=== PATIENT | female | born 1945 | race Caucasian/White ===

== ENCOUNTER 2018-07-15 11:44 | Observation (INO) | payer MEDICARE, OTHER ==
[~2018-07-15] VITALS: Ht 162.6 cm; Wt 99.8 kg
[~2018-07-15 11:44] MED LIST: ALBU90OI INH; ALIS150T PO; ALLO100 PO; ASPI81CH PO; ASPI81EC PO; BUME2 PO; CIPR500 PO; CYCL10 PO; FURO40 PO; HYDACE10B PO; HYDACE5 PO; HYOS0.375T PO; LEVSOD75 PO; LISI20 PO; METO25 PO; METR500 PO; Mucinex600 MG PO; NITR.6SL SL; POTCHL20ER PO; PRAV20 PO; Prednisone20 MG PO; QUIN10 PO; RANO500T PO; ROPI.25 PO; SPIR25 PO; TRAM50 PO; VERA180ERB PO; WARF5 PO; Zithromax250 MG PO
[2018-07-15 12:16] LABS: BASOPHILS ABSOLUTE AUTO 0.05 K/mm3 (0.00-0.23); BASOPHILS PERCENT AUTO 0 % (0-2); EOSINOPHILS ABSOLUTE AUTO 0.51 K/mm3 (0.00-0.68); EOSINOPHILS PERCENT AUTO 3 % (0-6); Hematocrit 33.2 % (33.0-51.0); Hemoglobin 9.8 g/dL (11.5-16.0); IMMATURE GRAN ABSOLUTE AUTO 0.08 K/mm3 (0.00-0.10); IMMATURE GRAN PERCENT AUTO 1 % (0-1); LYMPHOCYTES ABSOLUTE AUTO 1.12 K/mm3 (0.84-5.20); LYMPHOCYTES PERCENT AUTO 7 % (21-46); MONOCYTES ABSOLUTE AUTO 1.18 K/mm3 (0.16-1.47); MONOCYTES PERCENT AUTO 8 % (4-13); Mean Corpuscular HGB 23.6 pg (26.0-34.0); Mean Corpuscular HGB Conc 29.5 g/dL (31.5-36.5); Mean Corpuscular Volume 80 fL (80-100); Mean Platelet Volume 9.2 fL (9.1-12.4); NEUTROPHILS ABSOLUTE AUTO 12.67 K/mm3 (1.96-9.15); NEUTROPHILS PERCENT AUTO 81 % (41-73); NRBC ABSOLUTE 0.06 K/mm3 (0.00-0.02); NRBC Auto 0.4 /100 WBC (0.0-0.2); Platelet Count 378 K/mm3 (150-400); RDW Coefficient Variation 19.8 % (11.7-14.2); RDW Standard Deviation 55.1 fL (35.1-46.3); Red Blood Cell Count 4.15 M/mm3 (3.80-5.20); White Blood Cell Count 15.61 K/mm3 (4.00-11.30)
[2018-07-15 12:45] LABS: Albumin, Blood 2.6 g/dL (3.4-5.0); Albumin/Globulin Ratio 0.6 (0.8-1.8); Bilirubin, Total 0.6 mg/dL (0.1-1.0); Bun/Creatinine Ratio 24.3 (12.0-20.0); Calcium, Blood 10.6 mg/dL (8.5-10.1); Creatinine, Blood 1.73 mg/dL (0.40-1.00); Globulin, Blood 4.1 g/dL (2.2-4.0); Total Protein, Blood 6.7 g/dL (6.4-8.2)
[2018-07-15 12:50] LABS: Potassium, Blood 2.4 mmol/L (3.5-5.5)
[2018-07-15 13:57] LABS: Source, Urine Catheter
[2018-07-15 14:08] LABS: Prothrombin Time Results 53.6 Sec (9.7-11.5)
[2018-07-15 14:22] LABS: International Normalized Ratio 5.95
[2018-07-15 14:28] LABS: Appearance, Urine Clear (Clear); Bilirubin, Urine Neg (Neg); Blood, Urine Neg (Neg); Color, Urine Yellow (P-Yellow); Glucose Qualitative, Urine Neg (Neg); Ketones, Urine Neg (Neg); Leukocyte Esterase, Urine 1+ (Neg); Nitrite, Urine Neg (Neg); Protein, Urine 1+ (Neg); Urobilinogen, Urine NORM (Normal)
[2018-07-15 14:30] LABS: Influenza A Negative (NEGATIVE); Influenza B Negative (NEGATIVE)
[2018-07-15 14:55] LABS: Bacteria Rare /hpf; Red Blood Cells, Urine 0-2 /hpf (0-2); Squamous Epithelial Cells Rare /hpf (Few); White Blood Cells, Urine 0-2 /hpf (0-5)
--- NOTE | 2018-07-15 18:45 | NUR ---
ADMISSION COMPLETE. PATIENT HAVING WHAT APPEAR TO BE TREMORS, PATIENT STATES THAT IS NOT NORMAL FOR HER. ADMISSION COMPLETED. CALL LIGHT IN REACH. MEDICATION LIST NOT RECONCILED
--- NOTE | 2018-07-16 05:17 | NUR ---
SHIFT SUMMARY PT HAS SLEPT WELL THIS SHIFT. PT HAS ONGOING DISCOMFORT IN R HIP AND LEG. PT HAS BEEN REPOSITIONED AND K-PAD PLACED WITH GOOD EFFECT. PT HAS BEEN TX PER EMAR WELL. PT IS STILL VERY SHAKY AND FEELS WEAK. PT IS CURRENTLY WATCHING TV AND IN NO DISTRESS. CALL LIGHT IN REACH.
[2018-07-16 05:52] LABS: BASOPHILS ABSOLUTE AUTO 0.04 K/mm3 (0.00-0.23); BASOPHILS PERCENT AUTO 0 % (0-2); EOSINOPHILS ABSOLUTE AUTO 0.39 K/mm3 (0.00-0.68); EOSINOPHILS PERCENT AUTO 3 % (0-6); Hematocrit 28.2 % (33.0-51.0); Hemoglobin 8.1 g/dL (11.5-16.0); IMMATURE GRAN ABSOLUTE AUTO 0.11 K/mm3 (0.00-0.10); IMMATURE GRAN PERCENT AUTO 1 % (0-1); LYMPHOCYTES ABSOLUTE AUTO 1.77 K/mm3 (0.84-5.20); LYMPHOCYTES PERCENT AUTO 15 % (21-46); MONOCYTES ABSOLUTE AUTO 1.03 K/mm3 (0.16-1.47); MONOCYTES PERCENT AUTO 9 % (4-13); Mean Corpuscular HGB 23.5 pg (26.0-34.0); Mean Corpuscular HGB Conc 28.7 g/dL (31.5-36.5); Mean Corpuscular Volume 82 fL (80-100); Mean Platelet Volume 9.6 fL (9.1-12.4); NEUTROPHILS ABSOLUTE AUTO 8.13 K/mm3 (1.96-9.15); NEUTROPHILS PERCENT AUTO 71 % (41-73); NRBC ABSOLUTE 0.06 K/mm3 (0.00-0.02); NRBC Auto 0.5 /100 WBC (0.0-0.2); Platelet Count 319 K/mm3 (150-400); RDW Coefficient Variation 19.9 % (11.7-14.2); RDW Standard Deviation 57.5 fL (35.1-46.3); Red Blood Cell Count 3.45 M/mm3 (3.80-5.20); White Blood Cell Count 11.47 K/mm3 (4.00-11.30)
[2018-07-16 06:18] LABS: Bun/Creatinine Ratio 21.2 (12.0-20.0); Calcium, Blood 9.2 mg/dL (8.5-10.1); Creatinine, Blood 1.51 mg/dL (0.40-1.00); Potassium, Blood 3.2 mmol/L (3.5-5.5)
--- NOTE | 2018-07-16 06:33 | NUR ---
CRITICAL LAB CALLED INR 4.55.
[2018-07-16 06:34] LABS: International Normalized Ratio 4.55
--- NOTE | 2018-07-16 06:41 | NUR ---
PHARMACY CALLED ABOUT INR 4.55. PHARMACIST MARTHA STATED IT IS TRENDING IN THE RIGHT DIRECTION.
[2018-07-16 14:29] LABS: Hematocrit 27.3 % (33.0-51.0); Hemoglobin 8.1 g/dL (11.5-16.0)
--- NOTE | 2018-07-17 04:09 | NUR ---
07/17/18 0400 ASSISTED UP TO [facility] FOR VOIDING. C/O RT LEG AND BACK DISCOMFORT. MEDICATED PER AUG. VITALS STABLE. TAKING ORAL INTAKE WELL. PT WAS GIVEN A SLEEPER EARLIER PER HER C/O NOT ABLE TO SLEEP. SHE STATES IT HELPED "SOME" TO SLEEP.
[2018-07-17 05:00] LABS: BASOPHILS ABSOLUTE AUTO 0.04 K/mm3 (0.00-0.23); BASOPHILS PERCENT AUTO 0 % (0-2); EOSINOPHILS ABSOLUTE AUTO 0.49 K/mm3 (0.00-0.68); EOSINOPHILS PERCENT AUTO 5 % (0-6); Hematocrit 29.5 % (33.0-51.0); Hemoglobin 8.6 g/dL (11.5-16.0); IMMATURE GRAN PERCENT AUTO 1 % (0-1); LYMPHOCYTES ABSOLUTE AUTO 1.77 K/mm3 (0.84-5.20); LYMPHOCYTES PERCENT AUTO 19 % (21-46); MONOCYTES ABSOLUTE AUTO 0.91 K/mm3 (0.16-1.47); MONOCYTES PERCENT AUTO 10 % (4-13); Mean Corpuscular HGB 23.8 pg (26.0-34.0); Mean Corpuscular HGB Conc 29.2 g/dL (31.5-36.5); Mean Corpuscular Volume 82 fL (80-100); Mean Platelet Volume 9.5 fL (9.1-12.4); NEUTROPHILS PERCENT AUTO 65 % (41-73); NRBC ABSOLUTE 0.04 K/mm3 (0.00-0.02); NRBC Auto 0.4 /100 WBC (0.0-0.2); Platelet Count 327 K/mm3 (150-400); RDW Standard Deviation 58.1 fL (35.1-46.3); Red Blood Cell Count 3.62 M/mm3 (3.80-5.20); White Blood Cell Count 9.51 K/mm3 (4.00-11.30)
[2018-07-17 05:42] LABS: Calcium, Blood 10.5 mg/dL (8.5-10.1); Creatinine, Blood 1.21 mg/dL (0.40-1.00); Potassium, Blood 3.4 mmol/L (3.5-5.5)
[2018-07-17] MEDS ORDERED: PROP160ER PO (12:53)
[2018-07-17] MEDS ORDERED: GABA100 PO (12:53)
[2018-07-17] MEDS ORDERED: BUME2 PO (12:54)
[2018-07-17] MEDS ORDERED: TRAM50 PO (12:55)
[2018-07-17] MEDS ORDERED: WARF1 PO (12:56)
[2018-07-17] MEDS ORDERED: METO2.5 PO (12:57)
[2018-07-18 05:24] LABS: Bun/Creatinine Ratio 16.5 (12.0-20.0); Calcium, Blood 10.1 mg/dL (8.5-10.1); Creatinine, Blood 1.21 mg/dL (0.40-1.00); Potassium, Blood 4.1 mmol/L (3.5-5.5)
[2018-07-18 05:38] LABS: Hematocrit 31.8 % (33.0-51.0); Hemoglobin 9.2 g/dL (11.5-16.0)
--- NOTE | 2018-07-18 07:17 | NUR ---
Rn summary: Patient is alert and oriented. Pt has not slept much tonight per her report. Pt has been medicated for pain x2 this shift with some relief. She states she hurts all over from fall. Pt has significant bruising to rt side and left back. Pt is up to BSC independantly. Pt on O2 at 2 liters. Plan is for pt to be discharged today. Call light in reach. Stable during the night.
[2018-07-18] MEDS ORDERED: LEVSOD75 PO (11:07)
--- NOTE | 2018-07-18 11:54 | NUR ---
DISCHARGE INSTRUCTIONS REVIEWED WITH PT AND FRIENDS. IV DC'D INTACT. PT ESCORTED OUT VIA W/C AT 1140 TO D/C HOME WITH FRIENDS.
== END 2018-07-18 11:40 | disposition home or self-care (01) ==
LOC: ER 11:44 → MEDS 11:45
PROVIDERS: Emergency Medicine; ADMIT Hospitalist
DX: G92 Toxic encephalopathy (principal); T50.7X5A Adverse effect of analeptics and opioid receptor antagonists, initial encounter; E87.6 Hypokalemia; N17.9 Acute kidney failure, unspecified; I13.0 Hypertensive heart and chronic kidney disease with heart failure and stage 1 through stage 4 chronic kidney disease, or unspecified chronic kidney disease; I50.9 Heart failure, unspecified; N18.9 Chronic kidney disease, unspecified; J44.9 Chronic obstructive pulmonary disease, unspecified; F17.210 Nicotine dependence, cigarettes, uncomplicated; D72.829 Elevated white blood cell count, unspecified; E03.9 Hypothyroidism, unspecified; R79.1 Abnormal coagulation profile; Z79.01 Long term (current) use of anticoagulants; Z79.899 Other long term (current) drug therapy
CPT/HCPCS: 36415; 51701; 71046; 72100; 80048; 80053; 81001; 82330; 83735; 84145; 84484; 85014; 85018; 85025; 85610; 87086; 87804; 93005; 93010; 94640; 96361; 96365-59; 96366; 96366-59; 96367; 96375-59; 96376; 97116; 97162; 97530; 99285-25; G0378; J0696; J2405; J3480; J7030; J7050

== ENCOUNTER → 2018-07-27 | Outpatient (CLI) | payer MEDICARE, OTHER ==
[~2018-07-27] MED LIST changes: +GABA100 PO; +METO2.5 PO; +PROP160ER PO; +WARF1 PO
[2018-07-27 17:45] LABS: Bun/Creatinine Ratio 17.7 (12.0-20.0); Calcium, Blood 8.7 mg/dL (8.5-10.1); Creatinine, Blood 1.41 mg/dL (0.40-1.00); Potassium, Blood 3.4 mmol/L (3.5-5.5)
[2018-07-27 17:51] LABS: International Normalized Ratio 1.15
== END | disposition home or self-care (01) ==
LOC: LAB HH 12:20
PROVIDERS: Internal Medicine Hematology & Oncology
DX: Z79.01 Long term (current) use of anticoagulants (principal); Z51.81 Encounter for therapeutic drug level monitoring; I48.0 Paroxysmal atrial fibrillation
CPT/HCPCS: 80048; 85610

== ENCOUNTER 2019-11-19 15:53 | Emergency (ER) | payer MEDICARE, OTHER ==
[~2019-11-19] VITALS: Ht 162.6 cm; Wt 93.4 kg
[~2019-11-19 15:53] MED LIST changes: -GABA100 PO; -POTCHL20ER PO; -PROP160ER PO; -RANO500T PO; -ROPI.25 PO; -WARF1 PO
[2019-11-19 17:03] LABS: BASOPHILS ABSOLUTE AUTO 0.02 K/mm3 (0.00-0.23); BASOPHILS PERCENT AUTO 0 % (0-2); EOSINOPHILS ABSOLUTE AUTO 0.16 K/mm3 (0.00-0.68); EOSINOPHILS PERCENT AUTO 2 % (0-6); Hematocrit 45.1 % (33.0-51.0); Hemoglobin 13.7 g/dL (11.5-16.0); IMMATURE GRAN ABSOLUTE AUTO 0.07 K/mm3 (0.00-0.10); IMMATURE GRAN PERCENT AUTO 1 % (0-1); LYMPHOCYTES ABSOLUTE AUTO 1.13 K/mm3 (0.84-5.20); LYMPHOCYTES PERCENT AUTO 16 % (21-46); MONOCYTES PERCENT AUTO 11 % (4-13); Mean Corpuscular HGB 27.7 pg (26.0-34.0); Mean Corpuscular HGB Conc 30.4 g/dL (31.5-36.5); Mean Corpuscular Volume 91 fL (80-100); NEUTROPHILS ABSOLUTE AUTO 5.02 K/mm3 (1.96-9.15); NEUTROPHILS PERCENT AUTO 70 % (41-73); RDW Coefficient Variation 15.8 % (11.7-14.2); RDW Standard Deviation 51.8 fL (35.1-46.3); Red Blood Cell Count 4.94 M/mm3 (3.80-5.20)
[2019-11-19 17:19] LABS: Alanine Aminotransfer (ALT/SGP 12 U/L (12-78); Albumin, Blood 2.4 g/dL (3.4-5.0); Albumin/Globulin Ratio 0.6 (0.8-1.8); Alk Phos 76 U/L (50-136); Anion Gap 6 mmol/L (6-16); Aspartate Aminotrans (AST/SGOT 16 U/L (12-37); Bilirubin, Total 0.7 mg/dL (0.1-1.0); Blood Urea Nitrogen 14 mg/dL (8-24); Bun/Creatinine Ratio 13.1 (12.0-20.0); CO2, Blood 29 mmol/L (21-32); Calcium, Blood 9.2 mg/dL (8.5-10.1); Chloride, Blood 104 mmol/L (98-108); Creatinine, Blood 1.07 mg/dL (0.40-1.00); Globulin, Blood 4.3 g/dL (2.2-4.0); Glomerular Filtration Rate 53 (60-); Glucose, Blood 103 mg/dL (70-99); Potassium, Blood 3.5 mmol/L (3.5-5.5); Sodium, Blood 139 mmol/L (136-145); Total Protein, Blood 6.7 g/dL (6.4-8.2); Troponin I <0.015 ng/mL (0.000-0.040)
[2019-11-19 17:37] LABS: Mean Platelet Volume 10.5 fL (9.1-12.4); Platelet Count 212 K/mm3 (150-400)
[2019-11-19] MEDS ORDERED: ALLO100 PO (19:00)
[2019-11-19] MEDS ORDERED: GABA100 PO (19:00)
[2019-11-19] MEDS ORDERED: VERA180ERB PO (19:01)
[2019-11-19] MEDS ORDERED: POTCHL20ER PO (19:03)
[2019-11-19] MEDS ORDERED: ROPINIROLE HCL0.5 MG PO (19:05)
[2019-11-19] MEDS ORDERED: BUME2 PO (19:06)
[2019-11-19] MEDS ORDERED: RANO500T PO (19:07)
[2019-11-19] MEDS ORDERED: COMBIVENT RESPIM4 G1 INH (19:07)
[2019-11-19] MEDS ORDERED: FLOVENT HFA12 GM INH (19:07)
[2019-11-19] MEDS ORDERED: HYDROCODONE-AC1 EAC7 PO (19:08)
[2019-11-19] MEDS ORDERED: TRAM50 PO (19:09)
[2019-11-19] MEDS ORDERED: PROP120ER PO (19:09)
[2019-11-19] MEDS ORDERED: WARF1 (19:10)
[2019-11-19] MEDS ORDERED: AMOCLA875 PO (19:29)
[2019-11-19] MEDS ORDERED: Prednisone50 MG PO (19:29)
[2019-11-19] MEDS ORDERED: ALBU90OI INH (19:29)
== END 2019-11-19 19:35 | disposition home or self-care (01) ==
LOC: ER 15:53
PROVIDERS: Emergency Medicine
DX: J18.9 Pneumonia, unspecified organism (principal); J44.9 Chronic obstructive pulmonary disease, unspecified; Z79.01 Long term (current) use of anticoagulants; Z79.899 Other long term (current) drug therapy; I11.0 Hypertensive heart disease with heart failure; I50.9 Heart failure, unspecified; F17.210 Nicotine dependence, cigarettes, uncomplicated
CPT/HCPCS: 36415; 71046; 80053; 83880; 84484; 85025; 93005; 93010; 94640; 99285-25; J7512

== ENCOUNTER 2019-11-28 09:00 | Inpatient (IN) | payer MEDICARE, OTHER ==
[~2019-11-28] VITALS: Ht 162.6 cm; Wt 90.7 kg
[~2019-11-28 09:00] MED LIST changes: +AMOCLA875 PO; +Prednisone50 MG PO
[2019-11-28 09:52] LABS: BASOPHILS ABSOLUTE AUTO 0.08 K/mm3 (0.00-0.23); BASOPHILS PERCENT AUTO 1 % (0-2); EOSINOPHILS ABSOLUTE AUTO 0.14 K/mm3 (0.00-0.68); EOSINOPHILS PERCENT AUTO 1 % (0-6); Hematocrit 44.8 % (33.0-51.0); IMMATURE GRAN ABSOLUTE AUTO 0.27 K/mm3 (0.00-0.10); IMMATURE GRAN PERCENT AUTO 3 % (0-1); LYMPHOCYTES ABSOLUTE AUTO 1.85 K/mm3 (0.84-5.20); LYMPHOCYTES PERCENT AUTO 19 % (21-46); MONOCYTES ABSOLUTE AUTO 0.98 K/mm3 (0.16-1.47); MONOCYTES PERCENT AUTO 10 % (4-13); Mean Corpuscular HGB 28.6 pg (26.0-34.0); Mean Corpuscular HGB Conc 31.3 g/dL (31.5-36.5); Mean Corpuscular Volume 91 fL (80-100); Mean Platelet Volume 9.7 fL (9.1-12.4); NEUTROPHILS ABSOLUTE AUTO 6.57 K/mm3 (1.96-9.15); NEUTROPHILS PERCENT AUTO 67 % (41-73); Platelet Count 334 K/mm3 (150-400); RDW Coefficient Variation 15.6 % (11.7-14.2); White Blood Cell Count 9.89 K/mm3 (4.00-11.30)
[2019-11-28 10:03] LABS: Alanine Aminotransfer (ALT/SGP 11 U/L (12-78); Albumin, Blood 2.4 g/dL (3.4-5.0); Albumin/Globulin Ratio 0.5 (0.8-1.8); Alk Phos 82 U/L (50-136); Anion Gap 3 mmol/L (6-16); Aspartate Aminotrans (AST/SGOT 14 U/L (12-37); Bilirubin, Total 0.6 mg/dL (0.1-1.0); Blood Urea Nitrogen 34 mg/dL (8-24); Bun/Creatinine Ratio 27.6 (12.0-20.0); CO2, Blood 29 mmol/L (21-32); Calcium, Blood 9.5 mg/dL (8.5-10.1); Chloride, Blood 105 mmol/L (98-108); Creatinine, Blood 1.23 mg/dL (0.40-1.00); Globulin, Blood 4.7 g/dL (2.2-4.0); Glomerular Filtration Rate 45 (60-); Glucose, Blood 112 mg/dL (70-99); Potassium, Blood 4.1 mmol/L (3.5-5.5); Sodium, Blood 137 mmol/L (136-145); Total Protein, Blood 7.1 g/dL (6.4-8.2); Troponin I <0.015 ng/mL (0.000-0.040)
[2019-11-28] MEDS ORDERED: Ventolin/Prove6.7 GM INH (13:26)
[2019-11-28] MEDS ORDERED: GABA100 PO (13:27)
[2019-11-28] MEDS ORDERED: ALLO100 PO (13:27)
[2019-11-28] MEDS ORDERED: VERA180ERB PO (13:28)
[2019-11-28] MEDS ORDERED: POTCHL20ER PO (13:28)
[2019-11-28] MEDS ORDERED: ROPINIROLE HCL0.5 MG PO (13:29)
[2019-11-28] MEDS ORDERED: BUME2 PO (13:30)
[2019-11-28] MEDS ORDERED: FLOVENT HFA12 GM INH (13:31)
[2019-11-28] MEDS ORDERED: RANO500T PO (13:32)
[2019-11-28] MEDS ORDERED: PROP120ER PO (13:33)
[2019-11-28] MEDS ORDERED: HYDROCODONE-AC1 EAC7 PO (13:33)
[2019-11-28] MEDS ORDERED: COMBIVENT RESPIM4 G1 INH (13:33)
[2019-11-28] MEDS ORDERED: TRAM50 PO (13:33)
[2019-11-28] MEDS ORDERED: Coumadin2 MG PO (13:34)
[2019-11-28] MEDS ORDERED: FISH OIL 1,001000 M1 PO (14:02)
[2019-11-28] MEDS ORDERED: Colace100 MG PO (14:03)
[2019-11-28] MEDS ORDERED: Vitamin D2000 UNIT PO (14:03)
[2019-11-28 14:45] LABS: International Normalized Ratio 2.63; Prothrombin Time Results 26.6 Sec (9.7-11.5)
--- NOTE | 2019-11-28 17:14 | NUR ---
ER ADMIT- PT ARRIVED TO ROOM 363 VIA [place]NEY FROM ED AT 1538. PT SBA INTO BED. PT DENIES ANY PAIN. PT REPORTS CHRONIC NEUROPAHY TO BLE. LS DIMINISHED IN THE BASES, WITH CRACKLES ON THE RIGHT, ON 2L N/C. PT TALKS IN SHORT SENTENCES DUE TO SHORTNESS OF BREATH, RASPY VOICE NOTED. PT REPORTS SHE WAS DIAGNOSED WITH PNEUMONIA A WEEK AGO AND CONTINUE TO WORSEN. COVID SWAB SENT AND CAME BACK NEGATIVE, RESP PANEL ALSO SENT. PT REPORTS SHE IS ONLY SMOKING APROX 3 CIGARETTES A DAY NOW. PT ALSO STATES SHE HAS BEEN ASPIRATING ON WATER SINCE HER PNEUMONIA DIAGNOSIS. PT DENIES COUGH. TELE SB AT 57. 1+ BLE EDEMA. PT ORIENTED TO ROOM AND CALL SYSTEM, CALL LIGHT IN REACH.
[2019-11-28 17:17] LABS: Adenovirus Not Detected (NOT DETECT); Bordetella pertussis Not Detected (NOT DETECT); Chlamydophila pneumoniae Not Detected (NOT DETECT); Coronavirus 229E Not Detected (NOT DETECT); Coronavirus HKU1 Not Detected (NOT DETECT); Coronavirus NL63 Not Detected (NOT DETECT); Coronavirus OC43 Not Detected (NOT DETECT); Human Metapneumovirus Not Detected (NOT DETECT); Human Rhinovirus/Enterovirus Not Detected (NOT DETECT); Influenza A/2009-H1 Not Detected (NOT DETECT); Influenza A/H1 Not Detected (NOT DETECT); Influenza A/H3 Not Detected (NOT DETECT); Influenza B Not Detected (NOT DETECT); Mycoplasma pneumoniae Not Detected (NOT DETECT); Parainfluenza Virus 1 Not Detected (NOT DETECT); Parainfluenza Virus 2 Not Detected (NOT DETECT); Parainfluenza Virus 3 Not Detected (NOT DETECT); Parainfluenza Virus 4 Not Detected (NOT DETECT); Respiratory Syncytial Virus Not Detected (NOT DETECT)
[2019-11-29 05:31] LABS: BASOPHILS ABSOLUTE AUTO 0.05 K/mm3 (0.00-0.23); BASOPHILS PERCENT AUTO 1 % (0-2); EOSINOPHILS ABSOLUTE AUTO 0.12 K/mm3 (0.00-0.68); EOSINOPHILS PERCENT AUTO 1 % (0-6); Hematocrit 42.3 % (33.0-51.0); Hemoglobin 13.1 g/dL (11.5-16.0); IMMATURE GRAN PERCENT AUTO 2 % (0-1); LYMPHOCYTES ABSOLUTE AUTO 1.49 K/mm3 (0.84-5.20); LYMPHOCYTES PERCENT AUTO 16 % (21-46); MONOCYTES ABSOLUTE AUTO 0.86 K/mm3 (0.16-1.47); MONOCYTES PERCENT AUTO 9 % (4-13); Mean Corpuscular HGB 28.1 pg (26.0-34.0); Mean Corpuscular Volume 91 fL (80-100); Mean Platelet Volume 10.1 fL (9.1-12.4); NEUTROPHILS ABSOLUTE AUTO 6.78 K/mm3 (1.96-9.15); NEUTROPHILS PERCENT AUTO 71 % (41-73); Platelet Count 298 K/mm3 (150-400); RDW Coefficient Variation 15.5 % (11.7-14.2); RDW Standard Deviation 51.2 fL (35.1-46.3); Red Blood Cell Count 4.67 M/mm3 (3.80-5.20)
[2019-11-29 05:44] LABS: International Normalized Ratio 1.39; Prothrombin Time Results 14.6 Sec (9.7-11.5)
[2019-11-29 05:55] LABS: Albumin, Blood 2.1 g/dL (3.4-5.0); Albumin/Globulin Ratio 0.5 (0.8-1.8); Bilirubin, Total 0.7 mg/dL (0.1-1.0); Calcium, Blood 8.7 mg/dL (8.5-10.1); Creatinine, Blood 1.24 mg/dL (0.40-1.00); Globulin, Blood 4.4 g/dL (2.2-4.0); Potassium, Blood 4.4 mmol/L (3.5-5.5); Total Protein, Blood 6.5 g/dL (6.4-8.2)
--- NOTE | 2019-11-29 06:37 | NUR ---
SHIFT SUMMARY PT HAS HAD NO ACUTE CHANGES THIS SHIFT, NO C/O OF ANY KIND, SLEPT T/O THS NIGHT, & AT THIS TIME, CALL LIGHT IN REACH, WILL CONT TO MONITOR UNTIL REPORT GIVEN TO DAY RN.
--- NOTE | 2019-11-29 10:16 | NUR ---
SPOKE TO DR PEREZ- PT POTASSIUM THIS AM WAS 4.4. PT HAS DIFFICULTY SWALLOWING THESE AND HAS 40MEQ ORDERED. ORDER RECIEVED TO DC POTASSIUM.
--- NOTE | 2019-11-29 19:57 | NUR ---
SHIFT SUMMARY- PT POST PROCEDURE VITALS HAVE REMAINED STABLE. PT RESP RATE REDUCED BACK TO WNL. PT RESTING COMFORTABLY NO S&S OF DISTRESS NOTED PT STILL ON 2L O2 VIA NC. DR PEREZ ORDERED IV ATIVAN PRN. WHEN PT IV ABX WERE STARTED HER IV INFILTRATED AND ACCESS WAS LOST FOR A WHILE. PT IS A DIFFICULT IV START REQUIRES HOT PACKING HER EXTREMITY. NEW IV ACCESS ESTABLISHED IV ABX INFUSION RESUMED AND THE PT RELAXED AND TOOK A NAP. SHE WAS NO LONGER SHOWING S&S OF ANXIETY. NOP MED GIVEN AT THIS TIME PRN AVAILABLE IF NEED SHOULD ARRISE. PASSED ON IN BEDSIDE REPORT TO NIGHT KARLY OWENS.
--- NOTE | 2019-11-30 04:49 | NUR ---
SHIFT SUMMARY: 74 Y/O FEMALE RESTED COMFORTABLY ALL SHIFT; DENIES PAIN OR NAUSEA; WEARING O2 AT 2L/M PER NASAL CANNULA; DENIES SOB; ALERT AND ORIENTED X 4; BED ALARM APPLIED, BED LOW POSITION WITH CALL LIGHT AT SIDE.
[2019-11-30 05:21] LABS: BASOPHILS ABSOLUTE AUTO 0.05 K/mm3 (0.00-0.23); BASOPHILS PERCENT AUTO 1 % (0-2); EOSINOPHILS ABSOLUTE AUTO 0.09 K/mm3 (0.00-0.68); EOSINOPHILS PERCENT AUTO 1 % (0-6); Hematocrit 42.7 % (33.0-51.0); Hemoglobin 13.3 g/dL (11.5-16.0); IMMATURE GRAN ABSOLUTE AUTO 0.17 K/mm3 (0.00-0.10); IMMATURE GRAN PERCENT AUTO 2 % (0-1); LYMPHOCYTES ABSOLUTE AUTO 1.45 K/mm3 (0.84-5.20); LYMPHOCYTES PERCENT AUTO 15 % (21-46); MONOCYTES ABSOLUTE AUTO 0.97 K/mm3 (0.16-1.47); MONOCYTES PERCENT AUTO 10 % (4-13); Mean Corpuscular HGB 27.9 pg (26.0-34.0); Mean Corpuscular HGB Conc 31.1 g/dL (31.5-36.5); Mean Corpuscular Volume 90 fL (80-100); Mean Platelet Volume 9.6 fL (9.1-12.4); NEUTROPHILS ABSOLUTE AUTO 6.95 K/mm3 (1.96-9.15); NEUTROPHILS PERCENT AUTO 72 % (41-73); Platelet Count 280 K/mm3 (150-400); RDW Coefficient Variation 15.3 % (11.7-14.2); RDW Standard Deviation 50.3 fL (35.1-46.3); Red Blood Cell Count 4.76 M/mm3 (3.80-5.20); White Blood Cell Count 9.68 K/mm3 (4.00-11.30)
[2019-11-30 05:44] LABS: Bun/Creatinine Ratio 16.8 (12.0-20.0); Calcium, Blood 8.7 mg/dL (8.5-10.1); Creatinine, Blood 1.43 mg/dL (0.40-1.00); Potassium, Blood 3.3 mmol/L (3.5-5.5)
--- NOTE | 2019-11-30 19:28 | NUR ---
SHIFT SUMMARY- PT HAS BEEN SLEEPY TODAY, ALL VITALS WNL. PT HAS DENIED THE NEED FOR PAIN MEDICATION. NO ACUTE CHANGE T/O THE SHIFT THORCENTESIS PLANNED FOR TOMORROW MORNING HELD ALL HEPARIN SINCE ORDER WAS RECIEVED. PASSED ON IN REPORT TO NIGHT RN.
--- NOTE | 2019-12-01 03:54 | NUR ---
SHIFT SUMMARY: 74 Y/O OBESE FEMALE RESTED COMFORTABLY ALL SHIFT; DENIES PAIN; PT HAD ONE EPISODE NAUSEA WITHOUT EMESIS WITH ZOFRAN 4MG IVP X 1 GIVEN WITH RELIEF FELT; PT WEARING O2 AT 2L/M PER NASAL CANNULA; PTS BLOOD THINNERS HELD LAST NIGHT FOR POSSIBLE SURGICAL INTERVENTION THIS AM; PTS LUNG SOUNDS ARE DIMINISHED THROUGHOUT WITH NO COUGH NOTED; ALERT AND ORIENTED X 4; PT TOOK ALL MEDS SCHEDULED VIA APPLESAUCE THIS SHIFT; BED ALARM APPLIED, BED LOW POSITION WITH CALL LIGHT AT SIDE.
[2019-12-01 05:20] LABS: BASOPHILS ABSOLUTE AUTO 0.05 K/mm3 (0.00-0.23); BASOPHILS PERCENT AUTO 1 % (0-2); EOSINOPHILS ABSOLUTE AUTO 0.09 K/mm3 (0.00-0.68); EOSINOPHILS PERCENT AUTO 1 % (0-6); Hemoglobin 13.1 g/dL (11.5-16.0); IMMATURE GRAN PERCENT AUTO 2 % (0-1); LYMPHOCYTES ABSOLUTE AUTO 1.33 K/mm3 (0.84-5.20); LYMPHOCYTES PERCENT AUTO 13 % (21-46); MONOCYTES ABSOLUTE AUTO 1.08 K/mm3 (0.16-1.47); MONOCYTES PERCENT AUTO 11 % (4-13); Mean Corpuscular HGB 28.2 pg (26.0-34.0); Mean Corpuscular HGB Conc 31.2 g/dL (31.5-36.5); Mean Corpuscular Volume 90 fL (80-100); Mean Platelet Volume 10.2 fL (9.1-12.4); NEUTROPHILS ABSOLUTE AUTO 7.14 K/mm3 (1.96-9.15); NEUTROPHILS PERCENT AUTO 72 % (41-73); Platelet Count 298 K/mm3 (150-400); RDW Coefficient Variation 15.3 % (11.7-14.2); RDW Standard Deviation 50.4 fL (35.1-46.3); Red Blood Cell Count 4.65 M/mm3 (3.80-5.20); White Blood Cell Count 9.89 K/mm3 (4.00-11.30)
[2019-12-01 05:33] LABS: Bun/Creatinine Ratio 17.5 (12.0-20.0); Calcium, Blood 8.6 mg/dL (8.5-10.1); Creatinine, Blood 1.43 mg/dL (0.40-1.00)
[2019-12-01 09:48] LABS: International Normalized Ratio 1.08; Prothrombin Time Results 11.5 Sec (9.7-11.5)
--- NOTE | 2019-12-01 10:17 | NUR ---
RECIEVED A CALL FROM IMAGING- REQUEST RECIEVED FOR NEW COAG STUDIES, CALLED DR GUARDADO AND RECIEVED ORDERS. RECIEVED A CALL FROM IMAGING- THEY ARE OVER-BOOKED AND ARE TRYING TO MOVE PROCEDURES THAT ARE NON-EMERGENT TO TOMORROW. CALLED DR GUARDADO OK TO MOVE THE PROCEDURE TO TOMORROW, POTENTIAL DISCHARGE POSTPONED UNTIL THE PROCEDURE IS COMPLETED. PT IS ALERT AND ORIENTED AND NOT IN ANY DISTRESS AT THIS TIME RESP E/U ON 2L VIA NC AND SATS ARE 95-96%. PT INFORMED OF THE CHANGE.
--- NOTE | 2019-12-01 20:17 | NUR ---
SHIFT SUMMARY- BEDSIDE REPORT COMPLETED WITH NIGHT RN BENNIE. PT HAS NO S&S OF DISTRESS NOTED AT THE TIME OF SHIFT CHANGE. THORACENTESIS SCHEDULED FOR TOMORROW. PT HAS SOB WITH SPEAKING TO STAFF. SHE OFTEN HAS TO TAKE A BREATH IN THE MIDDLE OF WORDS. SOB SEEMS TO BE A LITTLE WORSE THIS EVENING WHEN COMPARED TO LAST NIGHT. O2 SATS ARE MAINTAINING ON 2L VIA NC. ORDER RECIEVED TO GIVE HEPARIN TODAY THEN HOLD 0000 HEPARIN DOSE UNTIL PROCEDURE IS COMPLETED.
[2019-12-02 04:24] LABS: BASOPHILS ABSOLUTE AUTO 0.04 K/mm3 (0.00-0.23); BASOPHILS PERCENT AUTO 1 % (0-2); EOSINOPHILS ABSOLUTE AUTO 0.11 K/mm3 (0.00-0.68); EOSINOPHILS PERCENT AUTO 1 % (0-6); Hematocrit 40.7 % (33.0-51.0); Hemoglobin 12.7 g/dL (11.5-16.0); IMMATURE GRAN ABSOLUTE AUTO 0.12 K/mm3 (0.00-0.10); IMMATURE GRAN PERCENT AUTO 1 % (0-1); LYMPHOCYTES ABSOLUTE AUTO 1.38 K/mm3 (0.84-5.20); LYMPHOCYTES PERCENT AUTO 16 % (21-46); MONOCYTES ABSOLUTE AUTO 1.03 K/mm3 (0.16-1.47); MONOCYTES PERCENT AUTO 12 % (4-13); Mean Corpuscular HGB 28.3 pg (26.0-34.0); Mean Corpuscular HGB Conc 31.2 g/dL (31.5-36.5); Mean Corpuscular Volume 91 fL (80-100); NEUTROPHILS ABSOLUTE AUTO 6.07 K/mm3 (1.96-9.15); NEUTROPHILS PERCENT AUTO 69 % (41-73); Platelet Count 273 K/mm3 (150-400); RDW Standard Deviation 49.9 fL (35.1-46.3); Red Blood Cell Count 4.49 M/mm3 (3.80-5.20); White Blood Cell Count 8.75 K/mm3 (4.00-11.30)
[2019-12-02 04:42] LABS: Albumin/Globulin Ratio 0.5 (0.8-1.8); Bilirubin, Total 0.6 mg/dL (0.1-1.0); Bun/Creatinine Ratio 17.1 (12.0-20.0); C-REACTIVE PROTEIN, EXT RANGE 7.36 mg/dL (0.000-0.300); Calcium, Blood 8.8 mg/dL (8.5-10.1); Creatinine, Blood 1.29 mg/dL (0.40-1.00); Globulin, Blood 4.4 g/dL (2.2-4.0); Potassium, Blood 3.7 mmol/L (3.5-5.5); Total Protein, Blood 6.4 g/dL (6.4-8.2)
[2019-12-02 16:10] LABS: Automated BF RBC Count 0.038 M/mm3 (0-0); Body Fluid WBC Count 1190 /mm3 (0-999); RBC Count, Body Fluid 38000 /mm3 (0-0)
[2019-12-02 16:11] LABS: pH, Body Fluid 7.9
[2019-12-02 16:15] LABS: Glucose, Body Fluid 6 mg/dL; Protein, Body Fluid 3.9 g/dL
[2019-12-02 16:55] LABS: Total Cell Count, Body Fluid 100
[2019-12-02 16:56] LABS: Appearance, Body Fluid Bloody (Clear); Color, Body Fluid Red (None-Yellow)
--- NOTE | 2019-12-02 18:06 | NUR ---
SHIFT SUMMARY PT UP TO BSC INDEPENDENTLY. SOB WITH ACTIVITY. O2 AT 2L/M BY NC. WENT TO THORACENTESIS THIS AFTERNOON WITH 75ML REMOVED ACCORDING TO RADIOLOGY REPORT. PT DENIES CHANGE IN RESP CONDITION. SPECIMAN SENT TO LAB FROM IMAGING DEPARTMENT. RESTING ON AND OFF IN BED THROUGH MOST OF DAY.
[2019-12-03 05:07] LABS: BASOPHILS ABSOLUTE AUTO 0.03 K/mm3 (0.00-0.23); BASOPHILS PERCENT AUTO 0 % (0-2); EOSINOPHILS ABSOLUTE AUTO 0.09 K/mm3 (0.00-0.68); EOSINOPHILS PERCENT AUTO 1 % (0-6); Hematocrit 42.4 % (33.0-51.0); Hemoglobin 13.3 g/dL (11.5-16.0); IMMATURE GRAN PERCENT AUTO 1 % (0-1); LYMPHOCYTES ABSOLUTE AUTO 1.55 K/mm3 (0.84-5.20); LYMPHOCYTES PERCENT AUTO 19 % (21-46); MONOCYTES ABSOLUTE AUTO 0.88 K/mm3 (0.16-1.47); MONOCYTES PERCENT AUTO 11 % (4-13); Mean Corpuscular HGB 28.2 pg (26.0-34.0); Mean Corpuscular HGB Conc 31.4 g/dL (31.5-36.5); Mean Corpuscular Volume 90 fL (80-100); Mean Platelet Volume 9.8 fL (9.1-12.4); NEUTROPHILS ABSOLUTE AUTO 5.42 K/mm3 (1.96-9.15); NEUTROPHILS PERCENT AUTO 67 % (41-73); Platelet Count 295 K/mm3 (150-400); RDW Coefficient Variation 14.9 % (11.7-14.2); RDW Standard Deviation 49.2 fL (35.1-46.3); Red Blood Cell Count 4.71 M/mm3 (3.80-5.20); White Blood Cell Count 8.07 K/mm3 (4.00-11.30)
[2019-12-03 05:27] LABS: Bun/Creatinine Ratio 17.2 (12.0-20.0); Calcium, Blood 9.1 mg/dL (8.5-10.1); Creatinine, Blood 1.34 mg/dL (0.40-1.00); Potassium, Blood 3.8 mmol/L (3.5-5.5)
--- NOTE | 2019-12-03 05:30 | NUR ---
74 year old Female appears older than actual age. PT smokerfor 50 plus years & prior exposure to secondhand smoke. HAs reoccurant rt pleural effusion & had thoracentesis yesterday with 75 ml removed from loculated area for diagnostics. PT tolerated procedure well. PT on 2 l oxygen has no home oxygen. PT on bioxx with sats greater than 90% . Minimal complaints, planning to dc home but will need home oxygen eval. encouraged smoking cessation .
--- NOTE | 2019-12-03 18:17 | NUR ---
SHIFT SUMMARY DR. RODRIGUEZ IN TO SEE PT THIS MORNING. WAITING FOR CYTOLOGY REPORT FOR DIAGNOSTICS. SOB WITH ANY ACTIVITY INCLUDING SPEECH. HAS A WHISPERY VOICE WHICH SHE SAYS USES LESS AIR TO COMMUNICATE. UP TO BEDSIDE COMMODE INDEPENDENTLY. DID REPORT R FOOT PAIN THIS MORNING WHICH WENT AWAY AFTER WALKING WITH P.T. THIS MORNING.
--- NOTE | 2019-12-04 04:25 | NUR ---
74 year old famale continues on 2 l nc oxygen to keep sats greater than 90%. She is pale & has weakness nausea & dyspnea with exertion. She Co nausea poor appetite. didn't eat dinner declined alternatives. Medicated with zofran for nausea. Took meds slowly in applesauce, some effort to swallow. Continues with hoarse whispered voice. PT smoler over 50 years, pulmonology consult for reoccuring rt pleural effusion that was sent for diagnostics after thoracnetesis. Final results not in yet. PT concerned for lung cancer with extensive smoking hx & exposure to second hand smoke. Educational materials for smoking cessation provided.
[2019-12-04 04:45] LABS: BASOPHILS ABSOLUTE AUTO 0.04 K/mm3 (0.00-0.23); BASOPHILS PERCENT AUTO 1 % (0-2); EOSINOPHILS ABSOLUTE AUTO 0.08 K/mm3 (0.00-0.68); EOSINOPHILS PERCENT AUTO 1 % (0-6); Hematocrit 40.3 % (33.0-51.0); Hemoglobin 12.4 g/dL (11.5-16.0); IMMATURE GRAN PERCENT AUTO 1 % (0-1); LYMPHOCYTES ABSOLUTE AUTO 1.53 K/mm3 (0.84-5.20); LYMPHOCYTES PERCENT AUTO 18 % (21-46); MONOCYTES ABSOLUTE AUTO 0.95 K/mm3 (0.16-1.47); MONOCYTES PERCENT AUTO 11 % (4-13); Mean Corpuscular HGB Conc 30.8 g/dL (31.5-36.5); Mean Corpuscular Volume 91 fL (80-100); Mean Platelet Volume 10.4 fL (9.1-12.4); NEUTROPHILS PERCENT AUTO 69 % (41-73); Platelet Count 313 K/mm3 (150-400); RDW Coefficient Variation 14.7 % (11.7-14.2); RDW Standard Deviation 49.1 fL (35.1-46.3); Red Blood Cell Count 4.43 M/mm3 (3.80-5.20)
[2019-12-04 05:05] LABS: Albumin, Blood 2.1 g/dL (3.4-5.0); Albumin/Globulin Ratio 0.5 (0.8-1.8); Bilirubin, Total 0.6 mg/dL (0.1-1.0); Bun/Creatinine Ratio 17.4 (12.0-20.0); Calcium, Blood 9.3 mg/dL (8.5-10.1); Creatinine, Blood 1.49 mg/dL (0.40-1.00); Globulin, Blood 4.6 g/dL (2.2-4.0); Potassium, Blood 3.9 mmol/L (3.5-5.5); Total Protein, Blood 6.7 g/dL (6.4-8.2)
--- NOTE | 2019-12-04 16:49 | NUR ---
Spoke with Bedside RN Karin and PT Desmond prior to Pt visit. Discussed case. Karin reports no concerns at this time. Desmond reports Pt is standbye assist and becomes tired and SOB after ambulation of approximately 20 feet. Pt will need home O2 evaluation prior to discharge. Pt resting in bed upon arrival. Pt is A&OX4 and denies pain at this time. Pt reports 5/10 pain when moving her foot due to gout flare up. Pt reports her dyspnea has improved. Engaged in therapeutic discussion regarding advanced care planning. Pt reports being a and lives with her son. Pt reports son has significant health issues ranging from cardiac to CVA. Discussed possible cancer diagnosis and encouraged Pt to discuss fears and concerns. Pt reports feeling mildy scared but has every intention to pursue treatment. Encouraged Pt to ask questions to assist with her decion making and suggested some examples. Educated Pt on the possibility of needing assistance at home as she goes through treatment or as cancer takes it coarse. Discussed the importance of planning for the future and developing multiple plans. Discussed completing POLST/AD. Pt expresses interest in AD. Educated on life sustaining measures and each section to complete. Educated on the importance of appointing a healthcare manufacturers service representative. Pt reports she will take AD home and discuss with son and friends. Pt expresses appreciation of visit and reports no other concerns at this time. Palliative Care will remain available.
--- NOTE | 2019-12-04 18:18 | NUR ---
Initial spiritual care note: Mrs. Freeman admit that she is fearful about dx. She appears weak and voice muddled/soft. She lives with her 55 yerar-old son. She allowed me to pray for her and she appeared comfortable enough with me to speak about her concerns. Provided emotional affirmation and gentle quitline counselor. I will continue to follow as schedule permits.
--- NOTE | 2019-12-04 19:25 | NUR ---
SHIFT SUMMARY PT AXO, PLEASANT AND COOPERATIVE WITH CARE THOUGH HAS RASPY VOICE. PT UP WITH SBA TO BATHROOM. PT COMPLAINS OF PAIN IN R. FOOT, MEDICATED PER EMAR. VSS. IV PATENT AND SALINE LOCKED. BED IN LOW POSITION, CALL LIGHT WITHIN REACH. PER DR. RODRIGUEZ, PT NEEDS HOME O2 EVAL. ORDER INPUT.
[2019-12-05 05:19] LABS: BASOPHILS ABSOLUTE AUTO 0.04 K/mm3 (0.00-0.23); BASOPHILS PERCENT AUTO 1 % (0-2); EOSINOPHILS ABSOLUTE AUTO 0.11 K/mm3 (0.00-0.68); EOSINOPHILS PERCENT AUTO 1 % (0-6); Hematocrit 37.4 % (33.0-51.0); Hemoglobin 11.8 g/dL (11.5-16.0); IMMATURE GRAN ABSOLUTE AUTO 0.09 K/mm3 (0.00-0.10); IMMATURE GRAN PERCENT AUTO 1 % (0-1); LYMPHOCYTES ABSOLUTE AUTO 1.29 K/mm3 (0.84-5.20); LYMPHOCYTES PERCENT AUTO 16 % (21-46); MONOCYTES ABSOLUTE AUTO 0.86 K/mm3 (0.16-1.47); MONOCYTES PERCENT AUTO 11 % (4-13); Mean Corpuscular HGB 28.2 pg (26.0-34.0); Mean Corpuscular HGB Conc 31.6 g/dL (31.5-36.5); Mean Corpuscular Volume 90 fL (80-100); Mean Platelet Volume 10.3 fL (9.1-12.4); NEUTROPHILS ABSOLUTE AUTO 5.64 K/mm3 (1.96-9.15); NEUTROPHILS PERCENT AUTO 70 % (41-73); Platelet Count 310 K/mm3 (150-400); RDW Coefficient Variation 14.7 % (11.7-14.2); RDW Standard Deviation 47.8 fL (35.1-46.3); Red Blood Cell Count 4.18 M/mm3 (3.80-5.20); White Blood Cell Count 8.03 K/mm3 (4.00-11.30)
[2019-12-05 05:53] LABS: Albumin, Blood 1.9 g/dL (3.4-5.0); Albumin/Globulin Ratio 0.4 (0.8-1.8); Bilirubin, Total 0.6 mg/dL (0.1-1.0); Calcium, Blood 9.3 mg/dL (8.5-10.1); Creatinine, Blood 1.37 mg/dL (0.40-1.00); Globulin, Blood 4.3 g/dL (2.2-4.0); Potassium, Blood 3.6 mmol/L (3.5-5.5); Total Protein, Blood 6.2 g/dL (6.4-8.2)
--- NOTE | 2019-12-05 06:31 | NUR ---
POWER PLANT TECHNICIAN SUMMARY PT A/O X4. SLEPT WELL TONIGHT. DENIES PAIN, NAUSEA. VSS. NO ACUTE CHANGES. PLEASANT. ON 2 L O2 VIA NC SATTING IN THE MID 90'S. EXP WHEEZES UPON ASCULTATION. PT APPEARS SOB WITH TALKING.
[2019-12-05] MEDS ORDERED: ALBU2.5V5 INH (11:13)
[2019-12-05] MEDS ORDERED: GUAI600T33 PO (11:17)
[2019-12-05] MEDS ORDERED: LACT PO (11:18)
--- NOTE | 2019-12-05 11:57 | NUR ---
REVIEW D'C INSTRUCTIONS. AWARE HAS F/U APPT W/ AND TO WRITE DOWN ANY QUESTIONS FOR HIM BEFORE APPT DATE OF 12/11. AWARE IS GOING TO SET UP APPT FOR PET SCAN. AWARE IF ANY PROBLEMS OR WORSENING TO GO TO E.R. REVIEW MEDS AND STS MOST SHE ALREADY HAS; OTHERWISE, TO [facility]ER AT [facility]. ANSWER ALL QUESTIONS. AWAITING [facility].
== END 2019-12-05 13:35 | disposition home or self-care (01) | DRG 180 ==
LOC: ER 09:00 → MEDS 14:16
PROVIDERS: Family Medicine; Internal Medicine; Nurse Practitioner Acute Care; Physician Assistant; ADMIT Internal Medicine
PROC: 0W9930Z Drainage of Right Pleural Cavity with Drainage Device, Percutaneous Approach (ICD-10-PCS; principal; 2019-12-02)
DX: C34.90 Malignant neoplasm of unspecified part of unspecified bronchus or lung (principal); J18.9 Pneumonia, unspecified organism; J96.21 Acute and chronic respiratory failure with hypoxia; I50.32 Chronic diastolic (congestive) heart failure; I13.0 Hypertensive heart and chronic kidney disease with heart failure and stage 1 through stage 4 chronic kidney disease, or unspecified chronic kidney disease; J44.0 Chronic obstructive pulmonary disease with (acute) lower respiratory infection; J91.0 Malignant pleural effusion; Z79.01 Long term (current) use of anticoagulants; F17.210 Nicotine dependence, cigarettes, uncomplicated; N18.3 Chronic kidney disease, stage 3 (moderate); G47.33 Obstructive sleep apnea (adult) (pediatric); Z20.828 Contact with and (suspected) exposure to other viral communicable diseases; I71.9 Aortic aneurysm of unspecified site, without rupture; R49.0 Dysphonia
CPT/HCPCS: 0099U; 32555; 36415; 70491; 71045; 71250; 80048; 80053; 82728; 82945; 83735; 83880; 83986; 84145; 84157; 84439; 84443; 84484; 85025; 85610; 85651; 86140; 87070; 87075; 87205; 88108; 88305; 88341; 88342; 89051; 93005; 93010; 94640; 94660; 94664; 94667; 94668; 94760; 94761; 94762; 96365; 97110; 97116; 97162; 98960; 99285-25; 99407; A9270; J0696; J1644; J2405; J3430; J7050; Q9967; U0002

== ENCOUNTER → 2019-12-25 | Outpatient (CLI) | payer MEDICARE, OTHER ==
[~2019-12-25] MED LIST changes: +ALBU2.5V5 INH; +COMBIVENT RESPIM4 G1 INH; +Colace100 MG PO; +Coumadin2 MG PO; +FISH OIL 1,001000 M1 PO; +FLOVENT HFA12 GM INH; +GABA100 PO; +GUAI600T33 PO; +HYDROCODONE-AC1 EAC7 PO; +LACT PO; +POTCHL20ER PO; +PROP120ER PO; +RANO500T PO; +ROPINIROLE HCL0.5 MG PO; +Ventolin/Prove6.7 GM INH; +Vitamin D2000 UNIT PO
[2019-12-25 12:22] LABS: BASOPHILS ABSOLUTE AUTO 0.04 K/mm3 (0.00-0.23); BASOPHILS PERCENT AUTO 1 % (0-2); EOSINOPHILS ABSOLUTE AUTO 0.11 K/mm3 (0.00-0.68); EOSINOPHILS PERCENT AUTO 2 % (0-6); Hematocrit 36.7 % (33.0-51.0); Hemoglobin 11.2 g/dL (11.5-16.0); IMMATURE GRAN ABSOLUTE AUTO 0.07 K/mm3 (0.00-0.10); IMMATURE GRAN PERCENT AUTO 1 % (0-1); LYMPHOCYTES ABSOLUTE AUTO 1.25 K/mm3 (0.84-5.20); LYMPHOCYTES PERCENT AUTO 18 % (21-46); MONOCYTES ABSOLUTE AUTO 0.71 K/mm3 (0.16-1.47); MONOCYTES PERCENT AUTO 10 % (4-13); Mean Corpuscular HGB 27.6 pg (26.0-34.0); Mean Corpuscular HGB Conc 30.5 g/dL (31.5-36.5); Mean Corpuscular Volume 90 fL (80-100); Mean Platelet Volume 9.4 fL (9.1-12.4); NEUTROPHILS ABSOLUTE AUTO 4.88 K/mm3 (1.96-9.15); NEUTROPHILS PERCENT AUTO 69 % (41-73); Platelet Count 352 K/mm3 (150-400); RDW Coefficient Variation 15.7 % (11.7-14.2); RDW Standard Deviation 51.8 fL (35.1-46.3); Red Blood Cell Count 4.06 M/mm3 (3.80-5.20); White Blood Cell Count 7.06 K/mm3 (4.00-11.30)
[2019-12-25 12:44] LABS: Albumin, Blood 2.3 g/dL (3.4-5.0); Albumin/Globulin Ratio 0.6 (0.8-1.8); Bilirubin, Total 0.4 mg/dL (0.1-1.0); Bun/Creatinine Ratio 23.2 (12.0-20.0); Calcium, Blood 9.4 mg/dL (8.5-10.1); Creatinine, Blood 1.12 mg/dL (0.40-1.00); Globulin, Blood 3.9 g/dL (2.2-4.0); Magnesium, Blood 1.9 mg/dL (1.6-2.4); Potassium, Blood 4.2 mmol/L (3.5-5.5); Total Protein, Blood 6.2 g/dL (6.4-8.2)
== END | disposition home or self-care (01) ==
LOC: LAB 12:11 → LAB SHORT 12:11
PROVIDERS: Internal Medicine Hematology & Oncology
DX: C34.91 Malignant neoplasm of unspecified part of right bronchus or lung (principal)
CPT/HCPCS: 80053; 83735; 85025

== ENCOUNTER → 2020-01-02 | Outpatient (CLI) | payer MEDICARE, OTHER ==
[2020-01-02 12:18] LABS: Albumin, Blood 2.3 g/dL (3.4-5.0); Albumin/Globulin Ratio 0.6 (0.8-1.8); Bilirubin, Total 0.4 mg/dL (0.1-1.0); Bun/Creatinine Ratio 17.2 (12.0-20.0); Calcium, Blood 8.9 mg/dL (8.5-10.1); Creatinine, Blood 1.16 mg/dL (0.40-1.00); Globulin, Blood 3.7 g/dL (2.2-4.0); Magnesium, Blood 1.7 mg/dL (1.6-2.4); Potassium, Blood 4.1 mmol/L (3.5-5.5)
== END | disposition home or self-care (01) ==
LOC: LAB SHORT 11:00 → LAB 11:00
PROVIDERS: Internal Medicine Hematology & Oncology
DX: C34.91 Malignant neoplasm of unspecified part of right bronchus or lung (principal); R73.9 Hyperglycemia, unspecified
CPT/HCPCS: 80053; 83036; 83735

== ENCOUNTER → 2020-01-08 | Outpatient (CLI) | payer MEDICARE, OTHER | END | disposition home or self-care (01) | LOC: LAB SHORT 17:00 → LAB 17:00 | DX: R19.7 Diarrhea, unspecified (principal) | CPT/HCPCS: 87493 ==

== ENCOUNTER → 2020-01-28 | Outpatient (CLI) | payer MEDICARE, OTHER ==
[2020-01-28 13:27] LABS: Albumin, Blood 2.6 g/dL (3.4-5.0); Albumin/Globulin Ratio 0.7 (0.8-1.8); Bilirubin, Total 0.4 mg/dL (0.1-1.0); Bun/Creatinine Ratio 11.9 (12.0-20.0); Calcium, Blood 8.8 mg/dL (8.5-10.1); Creatinine, Blood 1.18 mg/dL (0.40-1.00); Globulin, Blood 3.7 g/dL (2.2-4.0); Magnesium, Blood 1.3 mg/dL (1.6-2.4); Potassium, Blood 3.5 mmol/L (3.5-5.5); Total Protein, Blood 6.3 g/dL (6.4-8.2)
== END | disposition home or self-care (01) ==
LOC: LAB 11:25 → LAB SHORT 11:25
PROVIDERS: Internal Medicine Hematology & Oncology
DX: C34.91 Malignant neoplasm of unspecified part of right bronchus or lung (principal)
CPT/HCPCS: 80053; 83735

== ENCOUNTER → 2020-02-06 | Outpatient (CLI) | payer MEDICARE, OTHER ==
[2020-02-06 12:41] LABS: Albumin, Blood 2.6 g/dL (3.4-5.0); Albumin/Globulin Ratio 0.7 (0.8-1.8); Bilirubin, Total 0.6 mg/dL (0.1-1.0); Bun/Creatinine Ratio 9.1 (12.0-20.0); Calcium, Blood 9.1 mg/dL (8.5-10.1); Creatinine, Blood 1.1 mg/dL (0.40-1.00); Globulin, Blood 3.5 g/dL (2.2-4.0); Magnesium, Blood 1.3 mg/dL (1.6-2.4); Potassium, Blood 3.4 mmol/L (3.5-5.5); Total Protein, Blood 6.1 g/dL (6.4-8.2)
== END | disposition home or self-care (01) ==
LOC: LAB SHORT 12:01 → LAB 12:01
PROVIDERS: Internal Medicine Hematology & Oncology
DX: C34.91 Malignant neoplasm of unspecified part of right bronchus or lung (principal)
CPT/HCPCS: 80053; 83735

== ENCOUNTER → 2020-02-14 | Outpatient (CLI) | payer MEDICARE, OTHER ==
[2020-02-14 11:57] LABS: Albumin, Blood 2.7 g/dL (3.4-5.0); Albumin/Globulin Ratio 0.8 (0.8-1.8); Bilirubin, Total 0.4 mg/dL (0.1-1.0); Bun/Creatinine Ratio 13.6 (12.0-20.0); Calcium, Blood 9.6 mg/dL (8.5-10.1); Creatinine, Blood 1.1 mg/dL (0.40-1.00); Globulin, Blood 3.5 g/dL (2.2-4.0); Magnesium, Blood 1.4 mg/dL (1.6-2.4); Potassium, Blood 3.3 mmol/L (3.5-5.5); Total Protein, Blood 6.2 g/dL (6.4-8.2)
== END | disposition home or self-care (01) ==
LOC: LAB 11:05 → LAB SHORT 11:05
PROVIDERS: Internal Medicine Hematology & Oncology
DX: C34.91 Malignant neoplasm of unspecified part of right bronchus or lung (principal)
CPT/HCPCS: 80053; 83735

== ENCOUNTER → 2020-03-02 | Outpatient (CLI) | payer MEDICARE, OTHER ==
[2020-03-02 13:28] LABS: Albumin/Globulin Ratio 0.8 (0.8-1.8); Bilirubin, Total 0.4 mg/dL (0.1-1.0); Bun/Creatinine Ratio 10.6 (12.0-20.0); Calcium, Blood 9.7 mg/dL (8.5-10.1); Creatinine, Blood 1.04 mg/dL (0.40-1.00); Globulin, Blood 3.7 g/dL (2.2-4.0); Magnesium, Blood 1.2 mg/dL (1.6-2.4); Phosphorus, Blood 2.6 mg/dL (2.5-4.9); Potassium, Blood 2.6 mmol/L (3.5-5.5); Total Protein, Blood 6.7 g/dL (6.4-8.2)
== END | disposition home or self-care (01) ==
LOC: LAB SHORT 12:39 → LAB 12:39
PROVIDERS: Internal Medicine Hematology & Oncology
DX: C34.91 Malignant neoplasm of unspecified part of right bronchus or lung (principal)
CPT/HCPCS: 80053; 83735; 84100

== ENCOUNTER → 2020-03-19 | Outpatient (CLI) | payer MEDICARE, OTHER ==
[2020-03-19 17:57] LABS: Albumin/Globulin Ratio 0.9 (0.8-1.8); Bilirubin, Total 0.6 mg/dL (0.1-1.0); Bun/Creatinine Ratio 17.1 (12.0-20.0); Calcium, Blood 9.8 mg/dL (8.5-10.1); Creatinine, Blood 1.11 mg/dL (0.40-1.00); Globulin, Blood 3.5 g/dL (2.2-4.0); Magnesium, Blood 1.6 mg/dL (1.6-2.4); Phosphorus, Blood 2.9 mg/dL (2.5-4.9); Potassium, Blood 3.6 mmol/L (3.5-5.5); Total Protein, Blood 6.5 g/dL (6.4-8.2)
== END | disposition home or self-care (01) ==
LOC: LAB 17:22 → LAB SHORT 17:22
PROVIDERS: Internal Medicine Hematology & Oncology
DX: C34.91 Malignant neoplasm of unspecified part of right bronchus or lung (principal)
CPT/HCPCS: 80053; 83735; 84100

== ENCOUNTER → 2020-04-13 | Outpatient (CLI) | payer MEDICARE, OTHER ==
[2020-04-13 15:11] LABS: Performing Lab SYMBIODX; Test Name TISSUE BLOCK
[2020-04-17 08:28] LABS: Result SEE PATHOTH RESULTS
== END | disposition home or self-care (01) ==
LOC: LAB 14:38 → LAB SHORT 14:38
PROVIDERS: Internal Medicine Hematology & Oncology
DX: C34.90 Malignant neoplasm of unspecified part of unspecified bronchus or lung (principal)
CPT/HCPCS: 88360

== ENCOUNTER 2020-05-16 22:57 | Inpatient (IN) | payer MEDICARE, OTHER ==
[~2020-05-16] VITALS: Ht 162.6 cm; Wt 81.7 kg
[2020-05-16 23:52] LABS: BASOPHILS ABSOLUTE AUTO 0.03 K/mm3 (0.00-0.23); BASOPHILS PERCENT AUTO 1 % (0-2); EOSINOPHILS ABSOLUTE AUTO 0.12 K/mm3 (0.00-0.68); EOSINOPHILS PERCENT AUTO 2 % (0-6); Hematocrit 39.9 % (33.0-51.0); Hemoglobin 12.5 g/dL (11.5-16.0); IMMATURE GRAN ABSOLUTE AUTO 0.03 K/mm3 (0.00-0.10); IMMATURE GRAN PERCENT AUTO 1 % (0-1); LYMPHOCYTES ABSOLUTE AUTO 1.28 K/mm3 (0.84-5.20); LYMPHOCYTES PERCENT AUTO 20 % (21-46); MONOCYTES ABSOLUTE AUTO 0.56 K/mm3 (0.16-1.47); MONOCYTES PERCENT AUTO 9 % (4-13); Mean Corpuscular HGB 29.6 pg (26.0-34.0); Mean Corpuscular HGB Conc 31.3 g/dL (31.5-36.5); Mean Corpuscular Volume 94 fL (80-100); Mean Platelet Volume 9.3 fL (9.1-12.4); NEUTROPHILS ABSOLUTE AUTO 4.37 K/mm3 (1.96-9.15); NEUTROPHILS PERCENT AUTO 68 % (41-73); Platelet Count 286 K/mm3 (150-400); RDW Coefficient Variation 13.8 % (11.7-14.2); RDW Standard Deviation 48.1 fL (35.1-46.3); Red Blood Cell Count 4.23 M/mm3 (3.80-5.20); White Blood Cell Count 6.39 K/mm3 (4.00-11.30)
[2020-05-17 00:06] LABS: Alanine Aminotransfer (ALT/SGP 11 U/L (12-78); Albumin, Blood 2.6 g/dL (3.4-5.0); Albumin/Globulin Ratio 0.6 (0.8-1.8); Alk Phos 95 U/L (50-136); Anion Gap 3 mmol/L (6-16); Aspartate Aminotrans (AST/SGOT 18 U/L (12-37); Bilirubin, Total 0.3 mg/dL (0.1-1.0); Blood Urea Nitrogen 10 mg/dL (8-24); Bun/Creatinine Ratio 11.6 (12.0-20.0); CO2, Blood 37 mmol/L (21-32); Calcium, Blood 9.8 mg/dL (8.5-10.1); Chloride, Blood 103 mmol/L (98-108); Creatinine, Blood 0.86 mg/dL (0.40-1.00); Globulin, Blood 4.5 g/dL (2.2-4.0); Glomerular Filtration Rate >60 (60-); Glucose, Blood 108 mg/dL (70-99); Sodium, Blood 143 mmol/L (136-145); Total Protein, Blood 7.1 g/dL (6.4-8.2); Troponin I <0.015 ng/mL (0.000-0.040)
[2020-05-17 01:12] LABS: Influenza A, PCR Negative (NEGATIVE); Influenza B, PCR Negative (NEGATIVE); Resp Syncytial Virus, PCR Negative (NEGATIVE); SARS-Cov-2 (COVID-19) PCR, MMC Negative (NEGATIVE)
[2020-05-17 01:37] LABS: PCO2 Arterial 49.3 mmHg (35-45); PO2 Arterial 75.1 mmHg (80-100); pH Blood Arterial 7.47 (7.35-7.45)
[2020-05-17 02:40] LABS: International Normalized Ratio 0.99; Prothrombin Time Results 10.6 Sec (9.7-11.5)
--- NOTE | 2020-05-17 04:22 | NUR ---
PATIENT IS A NEW ADMIT FROM THE ED. TWO PERSON STAND PIVOT FROM GURNEY TO BED. AXOX 3 AND SOB WITH EXERTION. ON 4L O2 NC AND BASELINE. REPORTS SHE IS STILL A CEDS FROM 3-5 CIGARETTES DAILY. DENIES PAIN AND N/V. SHE REPORTS SHE NON-COMPLIANT WITH SOME OF HER MEDICATION. VSS/AFEBRILE. TELEMETRY PLACED AND TECH REPORTS NSR 70. PATIENT ORIENTED TO ROOM AND CALL LIGHT SYSTEM. REPORTS SHE WANTS TO WATCH TV AT THIS TIME. CALL LIGHT IN REACH. BED IN LOWEST POSITION. WILL CONTINUE TO MONITOR UNTIL DAY SHIFT NURSE ASSUMES CARE.
[2020-05-17 05:18] LABS: BASOPHILS ABSOLUTE AUTO 0.03 K/mm3 (0.00-0.23); BASOPHILS PERCENT AUTO 1 % (0-2); EOSINOPHILS PERCENT AUTO 2 % (0-6); Hematocrit 35.7 % (33.0-51.0); Hemoglobin 11.3 g/dL (11.5-16.0); IMMATURE GRAN ABSOLUTE AUTO 0.03 K/mm3 (0.00-0.10); IMMATURE GRAN PERCENT AUTO 1 % (0-1); LYMPHOCYTES ABSOLUTE AUTO 1.24 K/mm3 (0.84-5.20); LYMPHOCYTES PERCENT AUTO 23 % (21-46); MONOCYTES ABSOLUTE AUTO 0.58 K/mm3 (0.16-1.47); MONOCYTES PERCENT AUTO 11 % (4-13); Mean Corpuscular HGB 29.7 pg (26.0-34.0); Mean Corpuscular HGB Conc 31.7 g/dL (31.5-36.5); Mean Corpuscular Volume 94 fL (80-100); Mean Platelet Volume 9.2 fL (9.1-12.4); NEUTROPHILS ABSOLUTE AUTO 3.52 K/mm3 (1.96-9.15); NEUTROPHILS PERCENT AUTO 64 % (41-73); Platelet Count 261 K/mm3 (150-400); RDW Coefficient Variation 13.7 % (11.7-14.2); RDW Standard Deviation 47.7 fL (35.1-46.3)
[2020-05-17 05:48] LABS: Anion Gap 3 mmol/L (6-16); Blood Urea Nitrogen 11 mg/dL (8-24); Bun/Creatinine Ratio 12.3 (12.0-20.0); CO2, Blood 35 mmol/L (21-32); Calcium, Blood 9.3 mg/dL (8.5-10.1); Chloride, Blood 105 mmol/L (98-108); Creatinine, Blood 0.89 mg/dL (0.40-1.00); Glomerular Filtration Rate >60 (60-); Glucose, Blood 111 mg/dL (70-99); Potassium, Blood 2.6 mmol/L (3.5-5.5); Sodium, Blood 143 mmol/L (136-145)
--- NOTE | 2020-05-17 15:13 | NUR ---
SHIFT SUMMARY PT AWAKE DURING SHIFT REPORT THIS AM, RESTING QUIETLY HF. DENIED NEEDS. REPORTED BEING SOB FOR 1 WEEK. HX OF STAGE 4 LUNG CA. PT REPORTED BEING ON RA UNTIL DECEMBER OF THIS YEAR AND NOW IS ON 4L O2 NC AT BASELINE ALL THE TIME. PT LIVES WITH SON WHO IS NOW HAVING HEALTH ISSUES HIMSELF. PT TO HAVE THORACENTESIS TODAY, BUT LOVENOX GIVEN WHEN ADMITTED. RADIOLGY CALLED TO REPORT LOVENOX TO BE HELD TOMORROW AND THORACENTESIS WILL BE DONE IN AM. PT HAS BEEN SBA TO BSC D/T SOB. PALLIATIVE CARE TO SEE PT TODAY FOR ADVANCED CARE PLANNING. PT IS PLEASANT AND CO-OP. ABLE TO MAKE NEEDS KNOWN. CALL LT IN REACH.
--- NOTE | 2020-05-17 18:43 | NUR ---
Visit: Pt is brief. She does not want to discuss advance care planning or POLST forms. She does allow this RN to leave the documents at the bedside for her later review. She states her son is her decision maker and "he knows."
--- NOTE | 2020-05-18 03:57 | NUR ---
SHIFT SUMMARY PATIENT HAD NO ACUTE CHANGES OBSERVED. AXOX 3 AND ONE ASSIST TO BSC. SOB W/EXERTION. HX STAGE 4 LUNG CA. PIV REMAINS INTACT. OYSTER CULTURIST REPORTS NSR 80. ON 4L O2 NC. SCHEDULE THORACENTESIS IN AM. LOVENOX TO BE HELD. VSS/AFBERILE. DENIES PAIN AND N/V. CALL LIGHT IN REACH. BED IN LOWEST POSITION AND ALARM ACTIVATED. WILL CONTINUE TO MONITOR UNTIL DAY SHIFT NURSE ASSUMES CARE.
[2020-05-18 05:16] LABS: International Normalized Ratio 1.03
--- NOTE | 2020-05-18 11:45 | NUR ---
PT TO THORACENTESIS AT THIS TIME.
[2020-05-18 13:24] LABS: Body Fluid WBC Count 6570 /mm3 (0-999); RBC Count, Body Fluid 30000 /mm3 (0-0)
[2020-05-18 14:05] LABS: Appearance, Body Fluid Viscous (Clear); Color, Body Fluid Brown (None-Yellow)
--- NOTE | 2020-05-18 17:20 | NUR ---
Spiritual care note: Mrs. Freeman was irritable and told me she is not feeling better. She admits she is fearful, but quickly follows this statement with "but I don't want to talk. In fact, I just want to rest now." She appears emotionally withdrawn, fearful, and angry. I will remain available and attempt visits in coming days.
--- NOTE | 2020-05-18 18:14 | NUR ---
SHIFT SUMMARY PT A/O X4; PLEASANT AND COOPERATIVE WITH CARE. PT CURRENTLY ON 4 LITERS O2 VIA NC, WHICH IS HER BASELINE. HX OF STAGE 4 LUNG CANCER AND C/O DYSPNEA. PT HAD A THORACENTESIS, CHEST CT, AND CHEST XRAY TODAY. REMOVED 200 ML OF THICK FLUID DURING THE THORACENTESIS. CONCERNS OF INFECTION IN THE FLUID. PT GETTING IV AND ORAL ANTIBIOTICS. PULMONARY CONSULT CALLED. VSS; CURRENTLY RESTING IN BED WITH HER CALL LIGHT IN REACH.
[2020-05-19 05:19] LABS: BASOPHILS ABSOLUTE AUTO 0.04 K/mm3 (0.00-0.23); BASOPHILS PERCENT AUTO 1 % (0-2); EOSINOPHILS ABSOLUTE AUTO 0.19 K/mm3 (0.00-0.68); EOSINOPHILS PERCENT AUTO 3 % (0-6); Hematocrit 39.4 % (33.0-51.0); Hemoglobin 12.2 g/dL (11.5-16.0); IMMATURE GRAN ABSOLUTE AUTO 0.05 K/mm3 (0.00-0.10); IMMATURE GRAN PERCENT AUTO 1 % (0-1); LYMPHOCYTES ABSOLUTE AUTO 1.75 K/mm3 (0.84-5.20); LYMPHOCYTES PERCENT AUTO 24 % (21-46); MONOCYTES ABSOLUTE AUTO 0.77 K/mm3 (0.16-1.47); MONOCYTES PERCENT AUTO 11 % (4-13); Mean Corpuscular HGB 29.3 pg (26.0-34.0); Mean Corpuscular Volume 95 fL (80-100); Mean Platelet Volume 9.4 fL (9.1-12.4); NEUTROPHILS ABSOLUTE AUTO 4.55 K/mm3 (1.96-9.15); NEUTROPHILS PERCENT AUTO 62 % (41-73); Platelet Count 284 K/mm3 (150-400); RDW Coefficient Variation 13.6 % (11.7-14.2); RDW Standard Deviation 47.7 fL (35.1-46.3); Red Blood Cell Count 4.16 M/mm3 (3.80-5.20); White Blood Cell Count 7.35 K/mm3 (4.00-11.30)
--- NOTE | 2020-05-19 05:19 | NUR ---
SHIFT SUMMARY ASSUMED CARE OF PT AT 1900. PT IS A/OX4. HEART SOUNDS REGULAR, LUNG SOUNDS ARE DIMINSHED IN THE L AND HAVE CRACKLES IN THE BASES ON THE R, PT STATES IT IS HARD TO BREATH BUT NO MORE THAN NORMAL. PT IS ON 4L NC, THIS IS HER BASELINE. PT C/O HEADACHE AND BACK PAIN, MEDICATED PER EMAR. PT WAS INDEPENDENT TO BSC. NO ACUTE EVETNS DURING THE NIGHT. PT SLEPT MOST OF THE NIGHT. CALL LIGHT IN REACH, BED IN LOWEST POSTION.
[2020-05-19 05:36] LABS: Albumin, Blood 2.5 g/dL (3.4-5.0); Anion Gap 5 mmol/L (6-16); Blood Urea Nitrogen 20 mg/dL (8-24); Bun/Creatinine Ratio 17.4 (12.0-20.0); CO2, Blood 34 mmol/L (21-32); Calcium, Blood 9.9 mg/dL (8.5-10.1); Chloride, Blood 98 mmol/L (98-108); Creatinine, Blood 1.15 mg/dL (0.40-1.00); Glomerular Filtration Rate 49 (60-); Glucose, Blood 111 mg/dL (70-99); Phosphorus, Blood 3.8 mg/dL (2.5-4.9); Potassium, Blood 3.4 mmol/L (3.5-5.5); Sodium, Blood 137 mmol/L (136-145)
--- NOTE | 2020-05-19 18:52 | NUR ---
SHIFT SUMMMAI NASREEN HAD PULMONOLOGY VISIT HER TODAY, SHE STATES THAT THE PULMONOLOGY DOCTOR TOLD HER THAT HER CANCER WAS UNTREATABLE AND SUGGESTED COMFORT CARE WHICH SHE IS NOT READY FOR, NOR DOES SHE WISH TO SPEAK TO PALLIATIVE CARE. ON 4L OXYGEN (BASELINE), INDEP TO BSC. HAD TYLENOL FOR HEADACHE, NO OTHER PAIN MEDICATION REQUIRED THIS SHIFT. TELE DC'D. CONSULT PUT IN TO ÁNGEL (HER ONCOLOGIST), AND AWAITING HIS VISIT. HAD BM. CALL LIGHT IN REACH, TM
--- NOTE | 2020-05-20 05:41 | NUR ---
SHIFT SUMMARY THIS AM AROUND 0430 PT REPORTED 7/ ANGINA MID CHEST, STATES SHE USUALLY TAKES RANEXA FOR CHEST PAIN, VSS, DENIES DYSPNEA, DIZZINESS, NAUSEA @THIS TIME. INFORMED DR HUNTER, HE ORDERED A OT DOSE OF HOME DOSE RANEXA WHICH WAS DC'D 05/17. PT CURRENTLY STATES SHE NO LONGER HAS ANY CHEST PAIN AFTER TAKING RANEXA. AOX4. VSS. SPO2 >90% ON 4L O2. LUNGS SOUND DIM c FINE CRACKLES IN BASES. PT STATES SHE ALWAYS FEELS SOB, HOWEVER HAS E/U RESPIRATIONS. REPORTED NAUSEA LAST NIGHT & STATES SHE'S HAD NAUSEA ON/OFF PAST FEW MONTHS, INFORMED ALETHEA Ortiz & SHE ORDERED OT DOSE ZOFRAN, PT STATED RELIEF & HAD NO FURTHER NAUSEA. REPORTED 710 LAZO & BACK PAIN, MEDICATED 1X c TRAMADOL-PT STATED RELIEF. IND TO BSC. CALL LIGHT IN REACH. WILL MONITOR.
[2020-05-20 05:52] LABS: Albumin, Blood 2.6 g/dL (3.4-5.0); Anion Gap 5 mmol/L (6-16); Blood Urea Nitrogen 22 mg/dL (8-24); Bun/Creatinine Ratio 18.2 (12.0-20.0); CO2, Blood 35 mmol/L (21-32); Calcium, Blood 9.8 mg/dL (8.5-10.1); Chloride, Blood 94 mmol/L (98-108); Creatinine, Blood 1.21 mg/dL (0.40-1.00); Glomerular Filtration Rate 46 (60-); Glucose, Blood 118 mg/dL (70-99); Phosphorus, Blood 3.5 mg/dL (2.5-4.9); Potassium, Blood 3.9 mmol/L (3.5-5.5); Sodium, Blood 134 mmol/L (136-145)
--- NOTE | 2020-05-20 17:12 | NUR ---
Spiritual care note: Have been gaining rapport with Almaz for past few days. she was much more open and talkative today. She told me about ehr 58 yo son who is disbaled and lives with her. Almaz is very concerned about what will happen to him after she dies. She also told me she has heard the physicians tell her she is nearing end of life. She wants to hear what her oncologist has to say. She admits to being aware she is out of options and dying. 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 She tells me she misses being around people and feeling like part of a "family" at work. Almaz is processing her decline slowly. But she is processing. Many losses in her life has given Almaz a hard edge, but she is willing to show small vulnerabilities with time and gentleness. She does not want to tell her sonshe is dying until she gets home. "I want to tell him [id number]. She asked me to have the RN call Dr. Orellana to insist he awakens her the next time he rounds. I relayed this request to RN. I will continue to meet with Almaz as schedule and case-load permits.
--- NOTE | 2020-05-20 19:37 | NUR ---
END OF SHIFT SUMMARY: PATIENT REQUESTED UNINTERRUPTED REST TODAY. ATTEMPTED TO BATCH CARE AND ENCOURAGE STAFF TO COME BACK AFTER SHE HAD SOME REST. PATIENT REPORTED APPRECIATION AND CONTINUES TO REPORT FATIGUE. DR. NEAL WAS ABLE TO ROUND ON THE PATIENT THIS EVENING AND START DISCUSSING THE PLAN OF CARE. PATIENT REPORTS THAT SHE IS NOT INTERESTED IN PALLIATIVE CARE AND THAT SHE WANTS TO "FIGHT IT" (REFERRING TO THE LUNG CANCER) WITH DR. NEAL. PATIENT REPORTS THAT SHE IS EAGER TO DISCHARGE AND GET STARTED. PATIENT DENIES SOB OR DIFFICULTY BREATHING. SOME SOB NOTED WITH MOVEMENT. PATIENT DENIED CHEST PAIN OR NAUSEA THROUGHOUT SHIFT. MEDICATED ONCE FOR PAIN IN HER NECK AND BACK THIS EVENING.
[2020-05-21 05:36] LABS: Hematocrit 38.8 % (33.0-51.0); Hemoglobin 12.3 g/dL (11.5-16.0)
[2020-05-21 06:08] LABS: Albumin, Blood 2.6 g/dL (3.4-5.0); Anion Gap 4 mmol/L (6-16); Blood Urea Nitrogen 29 mg/dL (8-24); Bun/Creatinine Ratio 20.4 (12.0-20.0); CO2, Blood 36 mmol/L (21-32); Calcium, Blood 10.2 mg/dL (8.5-10.1); Chloride, Blood 92 mmol/L (98-108); Creatinine, Blood 1.42 mg/dL (0.40-1.00); Glomerular Filtration Rate 38 (60-); Glucose, Blood 122 mg/dL (70-99); Phosphorus, Blood 3.2 mg/dL (2.5-4.9); Potassium, Blood 4.2 mmol/L (3.5-5.5); Sodium, Blood 132 mmol/L (136-145)
--- NOTE | 2020-05-21 06:10 | NUR ---
SHIFT SUMMARY PATIENT ALERT AND ORIENTED. HAD NO COMPLAINGS OF PAIN OR SHORTNESS OF BREATH OVERNIGHT. WAS ABLE TO SLEEP WELL. IV PATENT AND FLUSHED. BED IN LOWEST POSITION WITH WHEELS LOCKED AND ALARM ON. CALL LIGHT WITHIN REACH. REPORT GIVEN TO ONCOMING RN.
--- NOTE | 2020-05-21 16:51 | NUR ---
Spiritual care note: Supportive visit provided. Almaz says she slept better last night. She is hoping to go home today and plans to meet with Dr. Orellana as an outpatient for plan going forward.
--- NOTE | 2020-05-21 18:09 | NUR ---
PT AOX4 AND COOPERATIVE OF CARE. PT STATES SHE DOES FEEL REALLY GOOD TODAY. PT IS INDEPENDENT TO BEDSIDE COMMODE AND CALLS APPROPRIATELY. PT HAS BED IS LOWEST POSITION. DENIED ANY PAIN TODAY. WILL CONTINUE TO MONITOR.
[2020-05-22 05:42] LABS: Albumin, Blood 2.4 g/dL (3.4-5.0); Anion Gap 5 mmol/L (6-16); Blood Urea Nitrogen 31 mg/dL (8-24); Bun/Creatinine Ratio 24.6 (12.0-20.0); CO2, Blood 35 mmol/L (21-32); Calcium, Blood 9.8 mg/dL (8.5-10.1); Chloride, Blood 88 mmol/L (98-108); Creatinine, Blood 1.26 mg/dL (0.40-1.00); Glomerular Filtration Rate 44 (60-); Glucose, Blood 118 mg/dL (70-99); Phosphorus, Blood 2.5 mg/dL (2.5-4.9); Potassium, Blood 4.1 mmol/L (3.5-5.5); Sodium, Blood 128 mmol/L (136-145)
--- NOTE | 2020-05-22 06:28 | NUR ---
SHIFT SUMMARY PATIENT ALERT AND ORIENTED. HAD NO COMPLAINTS OF PAIN, BUT STATED SHE WAS FEELING MORE WEAK AND SHORT OF BREATH THAN USUAL. A RESULT SHE DID NOT GET MUCH SLEEP OVERNIGHT. IV PATENT AND FLUSHED. BED IN LOWEST POSITION WITH WHEELS LOCKED. CALL LIGHT WITHIN REACH. REPORT GIVEN TO ONCOMING RN.
[2020-05-22] MEDS ORDERED: CEPH500 PO (12:05)
[2020-05-22 14:50] LABS: Influenza A, PCR Negative (NEGATIVE); Influenza B, PCR Negative (NEGATIVE); Resp Syncytial Virus, PCR Negative (NEGATIVE); SARS-Cov-2 (COVID-19) PCR, MMC Negative (NEGATIVE)
--- NOTE | 2020-05-22 17:29 | NUR ---
PT TRANSFERED VIA WHEELCHAIR OVER TO [facility]. REPORT WAS CALLED TO CHAS BRANDT AT [facility] PRIOR TO DISCHARGE. PT DENIED PAIN TODAY JUST STATING SHE WAS TIRED. PT ALSO REFUSED BUMEX EVEN WHEN COUNSELED BY THIS MANAGER OF INFORMATION WHY SHE NEEDS TO TAKE IT. PT WAS INDEPENDENT TO BEDSIDE COMMODE AND CALLED APPROPRIATELY. PACKET WAS GIVEN TO PARCEL POST CARRIER TO TAKE TO [facility]. PT LEFT AT 1615 ALL PERSONAL BELONGING WITH PT.
== END 2020-05-22 16:16 | disposition short-term general hospital (02) | DRG 180 ==
LOC: ER 22:57 → MEDS 22:58 → ER 05-17 02:58 → MEDS 05-17 03:05 → ENPENDDIS 05-22 11:23 → MEDS 05-22 16:16
PROVIDERS: Emergency Medicine; Family Medicine; Internal Medicine; ADMIT Internal Medicine
PROC: 0W993ZX Drainage of Right Pleural Cavity, Percutaneous Approach, Diagnostic (ICD-10-PCS; principal; 2020-05-18)
DX: C34.92 Malignant neoplasm of unspecified part of left bronchus or lung (principal); J96.21 Acute and chronic respiratory failure with hypoxia; J91.0 Malignant pleural effusion; I13.0 Hypertensive heart and chronic kidney disease with heart failure and stage 1 through stage 4 chronic kidney disease, or unspecified chronic kidney disease; I50.32 Chronic diastolic (congestive) heart failure; C78.2 Secondary malignant neoplasm of pleura; N17.9 Acute kidney failure, unspecified; R04.2 Hemoptysis; C34.91 Malignant neoplasm of unspecified part of right bronchus or lung; N18.9 Chronic kidney disease, unspecified; E11.22 Type 2 diabetes mellitus with diabetic chronic kidney disease; E03.9 Hypothyroidism, unspecified; E87.6 Hypokalemia; F17.210 Nicotine dependence, cigarettes, uncomplicated; G25.0 Essential tremor; G47.33 Obstructive sleep apnea (adult) (pediatric); I25.10 Atherosclerotic heart disease of native coronary artery without angina pectoris; J44.9 Chronic obstructive pulmonary disease, unspecified; Z86.73 Personal history of transient ischemic attack (TIA), and cerebral infarction without residual deficits; E83.52 Hypercalcemia; M79.2 Neuralgia and neuritis, unspecified; Z99.81 Dependence on supplemental oxygen; Z85.118 Personal history of other malignant neoplasm of bronchus and lung
CPT/HCPCS: 0241U; 32555; 36415; 36600; 71045; 71046; 71250; 80048; 80053; 80069; 82803; 83615; 84132; 84145; 84155; 84157; 84484; 85014; 85018; 85025; 85610; 87070; 87075; 87205; 88108; 88305; 89051; 93005; 93010; 94640; 94664; 94760; 96365; 96372; 97162; 99285-25; A9270; G0378; J0696; J1650; J2405; J7050

== ENCOUNTER → 2020-06-30 | Outpatient (CLI) | payer MEDICARE, OTHER ==
[~2020-06-30] MED LIST changes: +CEPH500 PO
[2020-06-30 15:45] LABS: BASOPHILS ABSOLUTE AUTO 0.06 K/mm3 (0.00-0.23); BASOPHILS PERCENT AUTO 2 % (0-2); EOSINOPHILS ABSOLUTE AUTO 0.22 K/mm3 (0.00-0.68); EOSINOPHILS PERCENT AUTO 6 % (0-6); Hematocrit 36.7 % (33.0-51.0); Hemoglobin 11.3 g/dL (11.5-16.0); IMMATURE GRAN ABSOLUTE AUTO 0.03 K/mm3 (0.00-0.10); IMMATURE GRAN PERCENT AUTO 1 % (0-1); LYMPHOCYTES PERCENT AUTO 20 % (21-46); MONOCYTES ABSOLUTE AUTO 0.11 K/mm3 (0.16-1.47); MONOCYTES PERCENT AUTO 3 % (4-13); Mean Corpuscular HGB 28.3 pg (26.0-34.0); Mean Corpuscular HGB Conc 30.8 g/dL (31.5-36.5); Mean Corpuscular Volume 92 fL (80-100); Mean Platelet Volume 10.2 fL (9.1-12.4); NEUTROPHILS ABSOLUTE AUTO 2.74 K/mm3 (1.96-9.15); NEUTROPHILS PERCENT AUTO 69 % (41-73); Platelet Count 293 K/mm3 (150-400); RDW Coefficient Variation 14.1 % (11.7-14.2); RDW Standard Deviation 47.9 fL (35.1-46.3); Red Blood Cell Count 3.99 M/mm3 (3.80-5.20); White Blood Cell Count 3.96 K/mm3 (4.00-11.30)
[2020-06-30 16:05] LABS: Albumin, Blood 2.6 g/dL (3.4-5.0); Albumin/Globulin Ratio 0.8 (0.8-1.8); Bilirubin, Total 0.6 mg/dL (0.1-1.0); Bun/Creatinine Ratio 35.5 (12.0-20.0); Calcium, Blood 9.2 mg/dL (8.5-10.1); Creatinine, Blood 1.1 mg/dL (0.40-1.00); Globulin, Blood 3.4 g/dL (2.2-4.0); Magnesium, Blood 1.5 mg/dL (1.6-2.4); Phosphorus, Blood 2.2 mg/dL (2.5-4.9)
== END | disposition home or self-care (01) ==
LOC: LAB SHORT 15:32 → LAB 15:32
PROVIDERS: Internal Medicine Hematology & Oncology
DX: C34.91 Malignant neoplasm of unspecified part of right bronchus or lung (principal); E83.42 Hypomagnesemia; I10 Essential (primary) hypertension
CPT/HCPCS: 80053; 83735; 84100; 85025